=== PATIENT | male | born 1995 | race Caucasian/White ===

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

== ENCOUNTER 2017-05-06 22:17 | Emergency (ER) | payer OTHER ==
[2017-05-06 22:27] VITALS: BP 123/71; PULSE 92; RESP 20; TEMP 97
[2017-05-06] MEDS ORDERED: KETOROLAC 30 MG/ML 1 ML VIAL IM STA (22:29)
--- NOTE | 2017-05-06 22:31 | ED ---
ENT HPI - General Chief complaint: Dental/Oral Stated complaint: Dental Pain Time Seen by Provider: 05/06/17 22:19 Source: patient Mode of arrival: ambulatory Limitations: no limitations - History of Present Illness Initial comments: 22-year-old male patient presents to the emergency department today for evaluation of right upper dental pain. Patient states that approximately 3 weeks ago he had 3 teeth filled to the area. He states he has had some tenderness to the teeth since getting them filled however over the last 12 hours he has had increase in the pain. He states that the pain is not radiating up into his cheek bone. He states that her hurts to eat or drink. He denies any difficulty opening or closing his mouth. He denies any difficulty swallowing. He denies any fever, chills, or swelling. Patient denies any recent rash, shortness breath, chest pain, abdominal pain, nausea, vomiting, diarrhea, constipation, back pain, numbness, tingling, dizziness, weakness, hematuria, dysuria, urinary urgency, urinary frequency, headache, visual changes, or any other complaints. - Related Data Home Medications Medication Instructions Recorded Confirmed Ibuprofen [Motrin] 600 mg PO Q8HR PRN 05/06/17 05/06/17 Previous Rx's Medication Instructions Recorded Acetaminophen-Codeine 300-30mg 1 tab PO Q6H PRN #12 tablet 05/06/17 [Tylenol #3] Amoxicillin 500 mg PO Q8H #30 capsule 05/06/17 Allergies Allergy/AdvReac Type Severity Reaction Status Date / Time latex Allergy Rash/Hives Verified 03/03/16 11:26 Review of Systems ROS Statement: Those systems with pertinent positive or pertinent negative responses have been documented in the HPI. ROS Other: All systems not noted in ROS Statement are negative. Past Medical History Past Medical History: Asthma Additional Past Medical History / Comment(s): ADHD History of Any Multi-Drug Resistant Organisms: None Reported Past Surgical History: No Surgical Hx Reported Additional Past Surgical History / Comment(s): metal plates in hands, back surgery Past Psychological History: ADD/ADHD, Anxiety, Depression Smoking Status: Current every day smoker Past Alcohol Use History: None Reported Past Drug Use History: None Reported General Exam Limitations: no limitations General appearance: alert, in no apparent distress, other (this is a well- developed, well-nourished adult male patient in no acute distress. Vital signs upon presentation are temperature 97.0F, pulse 92, respirations 20, blood pressure 123/71, pulse ox 100% on room air.) Eye exam: Present: normal appearance, PERRL, EOMI. Absent: scleral icterus, conjunctival injection, periorbital swelling ENT exam: Present: normal exam, mucous membranes moist, TM's normal bilaterally , other (right upper dentition reveals intact filling's. No gingival erythema or swelling. No evidence of drainable abscess.). Absent: normal oropharynx ( oropharyngeal erythema, tonsillar swelling, right tonsillar exudate.) Neck exam: Present: normal inspection. Absent: tenderness, meningismus, lymphadenopathy Respiratory exam: Present: normal lung sounds bilaterally. Absent: respiratory distress, wheezes, rales, rhonchi, stridor Cardiovascular Exam: Present: regular rate, normal rhythm, normal heart sounds. Absent: systolic murmur, diastolic murmur, rubs, gallop, clicks Neurological exam: Present: alert, oriented X3, CN II-XII intact Psychiatric exam: Present: normal affect, normal mood Skin exam: Present: warm, dry, intact, normal color. Absent: rash Course Vital Signs 05/06/17 22:19 Temperature 97.0 F L Pulse Rate 92 Respiratory 20 Rate Blood Pressure 123/71 O2 Sat by Pulse 100 Oximetry Medical Decision Making - Medical Decision Making 22-year-old male patient percents for evaluation of right upper dental pain. Physical examination was unremarkable. Patient had no evidence of gingival erythema or swelling. No evidence of drainable abscess. Patient is also complaining of sore throat, states that he was diagnosed with strep approximately 3 weeks ago however was treated with a 2 day course of antibiotics , six pills of amoxicillin. Patient states that over the last couple days of sore throat has been returning. States that he does notice some white drainage from the right tonsil. We will discharge patient at this time with a prescription for amoxicillin which will cover both strep and a dental infection should he have one. Patient is given a prescription for pain medications. he is instructed to follow-up with a dentist as soon as possible. He is instructed to return here immediately for any new, worsening, or concerning symptoms. He verbalizes understanding and agree with this plan. Disposition Clinical Impression: Pain, dental Disposition: HOME SELF-CARE Condition: Good Instructions: Toothache (ED) Additional Instructions: Take medications as directed. Complete antibiotic prescription in full. Follow -up with the dentist as soon as possible. Return here immediately for any new, worsening, or concerning symptoms. Prescriptions: Acetaminophen-Codeine 300-30mg [Tylenol #3] 1 tab PO Q6H PRN #12 tablet PRN Reason: Pain Amoxicillin 500 mg PO Q8H #30 capsule Referrals: None,Stated [Primary Care Provider] - 1-2 days Time of Disposition: 22:31
== END 2017-05-06 22:39 | disposition home or self-care (01) ==
LOC: EC 22:17
DX: K08.89 Other specified disorders of teeth and supporting structures (principal); J02.0 Streptococcal pharyngitis; F17.200 Nicotine dependence, unspecified, uncomplicated; Z91.040 Latex allergy status
CPT/HCPCS: 99283; 96372; J1885

== ENCOUNTER 2017-05-12 16:38 | Emergency (ER) | payer OTHER ==
[2017-05-12 16:42] VITALS: TEMP 97.8
[2017-05-12] MEDS ORDERED: ORPHENADRINE 30 MG/ML 2 ML VIAL IM STA (17:23)
[2017-05-12] MEDS ORDERED: methylPREDNISolone SOD SUCCI 125 MG/2 ML VIAL IM ONE (17:23)
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
--- NOTE | 2017-05-12 17:38 | XR ---
EXAMINATION TYPE: XR chest 2V, XR thoracic spine 3 views DATE OF EXAM: 05/12/2017 COMPARISON: 02/22/2016 HISTORY: 22-year-old male with back pain, coughed up blood last night FINDINGS: CHEST: The cardiomediastinal silhouette, aorta, and pulmonary vasculature are within normal limits. Lungs an d pleural spaces are clear. Thoracic spine: 12 rib-bearing thoracic vertebral bodies. All pedicles are visualized. Vertebral body heights are pre served and alignment is maintained. No significant spondylotic change seen. IMPRESSION: 1. Chest: No acute cardiopulmonary process. 2. Thoracic spine: No vertebral compression collapse, malalignment, or significant spondylotic change seen.
[2017-05-12 18:32] VITALS: BP 129/78; PULSE 68; RESP 16
== END 2017-05-12 18:31 | disposition home or self-care (01) ==
LOC: EC 16:38
DX: M54.6 Pain in thoracic spine (principal); R04.2 Hemoptysis; F17.200 Nicotine dependence, unspecified, uncomplicated; Z98.890 Other specified postprocedural states; Z88.6 Allergy status to analgesic agent; Z91.040 Latex allergy status
CPT/HCPCS: 72070; 71020; 99284; 96372 ×2; J2360; J2930

== ENCOUNTER 2018-03-26 23:45 | Emergency (ER) | payer OTHER ==
--- NOTE | 2018-03-27 00:52 | XR ---
EXAMINATION TYPE: XR chest 2V DATE OF EXAM: 03/27/2018 COMPARISON: 05/12/2017 HISTORY: Congestion TECHNIQUE: Frontal and lateral views of the chest are obtained. FINDINGS: Heart and mediastinum are normal. Lungs are clear. Diaphragm is normal. Bony thorax is int act. IMPRESSION: Normal chest. No change.
--- NOTE | 2018-03-27 00:53 | XR ---
EXAMINATION TYPE: XR KUB DATE OF EXAM: 03/27/2018 COMPARISON: 07/30/2016 HISTORY: Congestion TECHNIQUE: 2 views upright FINDINGS: There is no sign of intestinal obstruction or pneumoperitoneum. Fecal pattern is normal. Th ere are no pathologic calcifications over the kidneys. Lung bases are clear. IMPRESSION: Nonacute abdomen. No change.
--- NOTE | 2018-03-27 01:50 | ED ---
General Adult HPI - General Source: patient Mode of arrival: ambulatory Limitations: no limitations <Adrienne Yanes - Last Filed: 03/27/18 03:52> <Francesca Stout - Last Filed: 03/27/18 06:16> - General Chief complaint: Nausea/Vomiting/Diarrhea Stated complaint: Coughing up blood Time Seen by Provider: 03/27/18 00:33 - History of Present Illness Initial comments: 23-year-old male patient presents to the emergency department today for evaluation of cough and hemoptysis. Patient states that he developed upper respiratory symptoms including nasal congestion, cough, and sore throat approximately one month ago. States that the other symptoms have resolved but the cough has lingered. Patient states that today he started having bright red blood present in his sputum. The patient states it was mixed in with the mucous. Patient states that he does have some sharp chest pain during a coughing episodes but none at rest or deep breaths. States that he does occasionally become short of breath and winded when doing physical activity. States he has had several episodes of posttussive vomiting. States he does smoke marijuana and cigarettes. He denies any fevers or chills. Denies any dizziness or weakness. Denies any evidence of bleeding anywhere else including hematemesis, hematochezia, or melena. Patient denies any recent rash, abdominal pain, nausea, vomiting, diarrhea, constipation, back pain, numbness, tingling, hematuria, dysuria, urinary urgency, urinary frequency, headache, visual changes , or any other complaints. (Adrienne Yanes) - Related Data Previous Rx's Medication Instructions Recorded Acetaminophen-Codeine 300-30mg 1 tab PO Q6H PRN #12 tablet 05/06/17 [Tylenol #3] Amoxicillin 500 mg PO Q8H #30 capsule 05/06/17 Cyclobenzaprine [Flexeril] 10 mg PO TID #15 tab 05/12/17 methylPREDNISolone Dose Pack 4 mg PO DIRECTED #21 package 05/12/17 [Medrol Dose Pack] Albuterol Sulfate [Proair Hfa] 1 - 2 puff INHALATION Q6HR PRN #1 03/27/18 inhaler Azithromycin [Zithromax Z-pack] 0 mg PO DIRECTED #6 tab 03/27/18 Promethazine 6.25MG/5Ml [Phenergan 6.25 mg PO Q6H #100 ml 03/27/18 Syrup] methylPREDNISolone [Medrol Dose 4 mg PO DIRECTED #1 pack 03/27/18 Pack] Allergies Allergy/AdvReac Type Severity Reaction Status Date / Time ketorolac [From Toradol] Allergy Unknown Verified 03/26/18 23:56 latex Allergy Rash/Hives Verified 03/26/18 23:56 Review of Systems ROS Other: All systems not noted in ROS Statement are negative. <Adrienne Yanes - Last Filed: 03/27/18 03:52> ROS Other: All systems not noted in ROS Statement are negative. <Francesca Stout - Last Filed: 03/27/18 06:16> ROS Statement: Those systems with pertinent positive or pertinent negative responses have been documented in the HPI. Past Medical History Past Medical History: Asthma Additional Past Medical History / Comment(s): ADHD, History of Any Multi-Drug Resistant Organisms: None Reported Past Surgical History: Back Surgery Additional Past Surgical History / Comment(s): metal plates in hands, Past Psychological History: ADD/ADHD, Anxiety, Depression Smoking Status: Current every day smoker Past Alcohol Use History: Occasional Past Drug Use History: Marijuana <Adrienne Yanes M - Last Filed: 03/27/18 03:52> General Exam Limitations: no limitations General appearance: alert, in no apparent distress, other (Physical well- developed, well-nourished adult male patient in no acute distress. Vital signs upon presentation are temperature 98.4F, pulse 100, respirations 17, blood pressure 108/75, pulse ox 97% on room air.) Eye exam: Present: normal appearance, PERRL, EOMI. Absent: scleral icterus, conjunctival injection, periorbital swelling ENT exam: Present: normal exam, normal oropharynx, mucous membranes moist Neck exam: Present: normal inspection. Absent: tenderness, meningismus, lymphadenopathy Respiratory exam: Present: normal lung sounds bilaterally. Absent: respiratory distress, wheezes, rales, rhonchi, stridor Cardiovascular Exam: Present: regular rate, normal rhythm, normal heart sounds. Absent: systolic murmur, diastolic murmur, rubs, gallop, clicks GI/Abdominal exam: Present: soft, normal bowel sounds. Absent: distended, tenderness, guarding, rebound, rigid Neurological exam: Present: alert, oriented X3, CN II-XII intact Psychiatric exam: Present: normal affect, normal mood Skin exam: Present: warm, dry, intact, normal color. Absent: rash <Adrienne Yanes - Last Filed: 03/27/18 03:52> Vital Signs 03/26/18 03/27/18 23:51 02:15 Temperature 98.4 F 98.3 F Pulse Rate 100 54 L Respiratory 17 18 Rate Blood Pressure 108/75 110/67 O2 Sat by Pulse 97 98 Oximetry Medical Decision Making - Radiology Data Radiology results: report reviewed, image reviewed <Adrienne Yanes - Last Filed: 03/27/18 03:52> <Francesca Stout - Last Filed: 03/27/18 06:16> - Medical Decision Making 23-year-old male patient presented to the emergency department today for evaluation of cough and hemoptysis. Physical examination is unremarkable. Lungs are clear to auscultation with good air movement. Chest x-ray was obtained and showed no acute cardiopulmonary process. Patient's vital signs are stable, he is afebrile. Patient symptoms are consistent with acute bronchitis. We will treat with azithromycin, Medrol Dosepak, and cough medication. He'll be given Pro Air inhaler for shortness of breath. He is instructed to follow-up with his primary care physician for recheck in 1-2 days. Return parameters were discussed in detail. He verbalizes understanding and agrees with this plan. (Adrienne Yanes) I was available for consultation in the emergency department. The history and physical exam were done by the midlevel provider. I was consulted for this patient's care. I reviewed the case with the midlevel provider and based on their presentation of the patient, I agree with the assessment, medical decision making and plan of care as documented. (Francesca Stout) - Radiology Data KUB x-ray of the abdomen was obtained. Report was reviewed in its entirety. Impression by Dr. Ring shows nonacute abdomen. With no change. Two-view x-ray of the chest is obtained. Heart min [place] normal. Lungs are clear. Diaphragm is normal. Bony thorax is intact. Impression by Dr. Ring shows normal chest with no change. (Adrienne Yanes) Disposition Is patient prescribed a controlled substance at d/c from ED?: No Time of Disposition: 01:49 <Adrienne Yanes - Last Filed: 03/27/18 03:52> <Francesca Stout - Last Filed: 03/27/18 06:16> Clinical Impression: Acute bronchitis, Hemoptysis Disposition: HOME SELF-CARE Condition: Good Instructions: Acute Bronchitis (ED) Additional Instructions: Take medications as directed. Increase fluids. Follow-up with your primary care physician for recheck as soon as possible. Return here immediately for any new, worsening, or concerning symptoms. Prescriptions: Albuterol Sulfate [Proair Hfa] 1 - 2 puff INHALATION Q6HR PRN #1 inhaler PRN Reason: Shortness Of Breath Azithromycin [Zithromax Z-pack] 0 mg PO DIRECTED #6 tab methylPREDNISolone [Medrol Dose Pack] 4 mg PO DIRECTED #1 pack Promethazine 6.25MG/5Ml [Phenergan Syrup] 6.25 mg PO Q6H #100 ml Referrals: Katiana Dorsey MD [REFERRING] - 1-2 days
[2018-03-27 02:16] VITALS: BP 110/67; PULSE 54; RESP 18; TEMP 98.3
== END 2018-03-27 02:15 | disposition home or self-care (01) ==
LOC: EC 23:45
DX: J20.9 Acute bronchitis, unspecified (principal); R11.10 Vomiting, unspecified; F12.90 Cannabis use, unspecified, uncomplicated; F17.210 Nicotine dependence, cigarettes, uncomplicated; Z88.6 Allergy status to analgesic agent; Z91.040 Latex allergy status
CPT/HCPCS: 71046; 74018; 99283

== ENCOUNTER 2018-08-18 00:18 | Inpatient (IN) | payer MEDICAID, OTHER ==
[2018-08-18] MEDS ORDERED: LORazepam 1 MG TAB PO STA (00:55)
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
[2018-08-18 02:05] LABS: Amphetamine Screen,Urine Not Detected (NotDetected); Barbiturate Screen,Urine Not Detected (NotDetected); Benzodiazepines Screen,Urine Not Detected (NotDetected); Cocaine Screen,Urine Not Detected (NotDetected); Methadone Screen, Urine Not Detected (NotDetected); Opiate Screen,Urine Not Detected (NotDetected); Oxycodone Screen, Urine Not Detected (NotDetected); Phencyclidine Screen,Urine Not Detected (NotDetected); Tricyclic Antidepressant,Urine Not Detected (NotDetected); Urn Cannabinoid Scrn Detected (NotDetected)
[2018-08-18 03:18] LABS: Appearance,Urine Clear (Clear); Bilirubin,Urine Negative (Negative); Blood,Urine Negative (Negative); Color,Urine Colorless; Glucose,Urine (UA) Negative (Negative); Ketones,Urine Negative (Negative); Leukocyte Esterase,Urine Negative (Negative); Nitrite,Urine Negative (Negative); Protein,Urine Negative (Negative); Specific Gravity,Urine 1.002 (1.001-1.035); Urobilinogen,Urine <2.0 mg/dL (<2.0)
[2018-08-18] MEDS ORDERED: ZIPRASIDONE 20 MG VIAL IM PRN (03:29)
[2018-08-18] MEDS ORDERED: MAGNESIUM HYDROXIDE 2,400 MG/10 ML CUP PO PRN (03:29)
[2018-08-18] MEDS ORDERED: ACETAMINOPHEN TAB 325 MG TAB PO PRN (03:29)
[2018-08-18] MEDS ORDERED: LORazepam 1 MG TAB PO PRN (03:29)
[2018-08-18] MEDS ORDERED: MAG HYDROX/AL HYDROX/SIMETH 30 ML CUP PO PRN (03:29)
[2018-08-18 05:15] VITALS: BMI 21.9
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
[2018-08-18 08:59] LABS: Basophils # (A) 0.1 k/uL (0-0.2); Basophils % (A) 1 %; Eosinophils # (A) 0.2 k/uL (0-0.7); Eosinophils % (A) 2 %; HCT 47.2 % (39.0-53.0); HGB 15.4 gm/dL (13.0-17.5); Lymphocytes # (A) 2.2 k/uL (1.0-4.8); Lymphocytes % (A) 19 %; MCH 31.1 pg (25.0-35.0); MCHC 32.6 g/dL (31.0-37.0); MCV 95.1 fL (80.0-100.0); Mean Platelet Volume 6.9; Monocytes # (A) 0.5 k/uL (0-1.0); Monocytes % (A) 5 %; Neutrophils # (A) 8.3 k/uL (1.3-7.7); Neutrophils % (A) 71 %; Platelet Count 256 k/uL (150-450); RBC 4.96 m/uL (4.30-5.90); RDW 12.5 % (11.5-15.5); WBC 11.7 k/uL (3.8-10.6)
[2018-08-18 09:09] LABS: ALT 29 U/L (21-72); AST 23 U/L (17-59); Albumin 4.6 g/dL (3.5-5.0); Alkaline Phosphatase 55 U/L (38-126); Anion Gap 7 mmol/L; Blood Urea Nitrogen 13 mg/dL (9-20); Calcium 10.1 mg/dL (8.4-10.2); Carbon Dioxide 28 mmol/L (22-30); Chloride 108 mmol/L (98-107); Cholesterol 134 mg/dL (<200); Glucose 92 mg/dL (74-99); HDL Cholesterol 62 mg/dL (40-60); LDL Cholesterol,Calculated 60 mg/dL (0-99); Potassium 4.7 mmol/L (3.5-5.1); Sodium 143 mmol/L (137-145); Total Bilirubin 1.3 mg/dL (0.2-1.3); Total Protein 7.4 g/dL (6.3-8.2); Triglycerides 60 mg/dL (<150)
[2018-08-18] MEDS: NICOTINE 14MG/24HR PATCH TRANSDERM SCH (10:39)
[2018-08-18] MEDS: ESCITALOPRAM 10 MG TAB PO SCH (11:41)
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
[2018-08-19] MEDS: NICOTINE 14MG/24HR PATCH TRANSDERM SCH (08:11)
[2018-08-19] MEDS: ESCITALOPRAM 10 MG TAB PO SCH (08:11)
--- NOTE | 2018-08-19 10:06 | P.PN ---
Progress Note - Text Interval history: The patient is found in group he follows me to an interview room. He indicates that his mood is better today versus yesterday. He did have a visit last night that was supportive. He reports having some difficulty sleeping last night staff reportedly slept 6 hours. He describes his appetite is been impaired and has been picking at his meals. He reports that he has been attending groups starting today. He states that the Lexapro, significant nausea yesterday and today we discussed lowering the dose to transition him more slowly on the medication. Mental status exam: The patient is alert he is a male appearing his stated age he is a mildly disheveled appearance hygiene is adequate he is dressed in his own clothing. He seated calmly in the chair. He maintains a constricted affect. He reports feeling safe in the hospital he is reporting no thoughts of harming others. He is reporting no auditory or visual hallucinations or any specific delusions. He demonstrates no evidence of psychosis hypomania or saul. He demonstrates no verbal or physical aggressiveness. He has a little spontaneous speech but mainly response to questions asked. Plan: The patient will continue on the Lexapro we will reduce the dose to 5 mg daily to slow his transition onto the medication due to the report of nausea. He is offered Zofran for nausea but declines. We will monitor him for safety monitor his intake. He is asked to provide social work with names of individuals who may be involved in his treatment and discharge planning. Vital signs reviewed.
[2018-08-19 10:55] LABS: Hemoglobin A1C 5.7 % (4.0-6.0)
[2018-08-20] MEDS: NICOTINE 14MG/24HR PATCH TRANSDERM SCH (08:00)
[2018-08-20] MEDS: ESCITALOPRAM 5 MG TAB PO SCH (08:00)
--- NOTE | 2018-08-20 11:55 | P.PN ---
Progress Note - Text The patient is found in the hallway he follows me to an interview room. He indicates his mood is improved. He was happy to report that he had been able to speak to his 11-year-old sister on the phone. He hasn't spoken to her in 3 years. He feels his family have been much more supportive. He states he is no longer experiencing any nausea from the Lexapro. He has been eating sleep has been stable. We discussed having social work trying to arrange a support meeting. Mental status exam: The patient is alert he is pleasant cooperative. He is dressed in his own clothing. Eye contact is appropriate speech is fluent spontaneous nonpressured. He indicates his mood is better. He reports no suicidal ideation intent or plan. He is verbalizing future oriented thinking. He is reporting no thoughts of harming others. He endorses no symptoms of psychosis there is no evidence of psychosis he does not appear hypomanic or manic. Insight and judgment improving. He demonstrates no verbal or physical aggressiveness. Affect is much more appropriately expressive. Plan: We will continue the last row 5 mg daily 1 more day then we will titrate back to 10 mg daily. Social work be asked to arrange a support meeting. He may be appropriate for discharge as soon as one to 2 days. We will continue to monitor him for safety and encourage full participation in the milieu.
[2018-08-21 06:57] VITALS: BP 114/62; PULSE 59; RESP 14; TEMP 97.9
[2018-08-21] MEDS: ESCITALOPRAM 5 MG TAB PO SCH (08:32)
[2018-08-21] MEDS: NICOTINE 14MG/24HR PATCH TRANSDERM SCH (08:33)
--- NOTE | 2018-08-21 09:07 | P.DS ---
Providers Date of admission: 08/18/18 03:16 Expected date of discharge: 08/21/18 Attending physician: Brock Flores Consults: 08/18/18 03:29 Consult Physician Routine Consulting Provider: Ania Thomson Consult Reason/Comments: H and P Do you want consulting provider notified?: Yes Primary care physician: Stated None - Discharge Diagnosis(es) (1) Major depressive disorder, recurrent severe without psychotic features Current Visit: Yes Status: Acute Priority: High (2) Anxiety disorder, unspecified Current Visit: Yes Status: Acute Priority: Medium Hospital Course: Brief summary of admission note: This patient is a 23-year-old single male who was admitted to the mental health unit through the emergency room with acute suicidal ideation with plan of cutting his arm. The patient reported symptoms of depression that had been worsening over the last 2 months. He states he'll he struggles this time year as it is the anniversary of his mother' s . He reported feeling more tearful and hopeless in describing erratic sleep energy and appetite. For full details please refer to my psychiatric evaluation dated 08/18/2018. Summary of hospital course: The patient was admitted to the mental health unit voluntarily. We reviewed his presenting symptoms and treatment options. We initiated Lexapro 10 mg daily. He experienced some nausea with that and would reduce the dose to 5 mg for several days. He has been tolerating the medication better and we plan to titrated again to 10 mg daily. The patient was seen by internal medicine for routine history and physical exam. The patient was seen by social work for a psychosocial assessment and for discharge planning purposes. He is scheduled to participate in a support meeting with family at 2:30 PM today. The patient has been attending groups he's been pleasant and cooperative. He has demonstrated no agitated behavior. He has reported a progressive improvement of symptoms while here. During the hospitalization he reconcile differences with his stepfather and he is now able to communicate with his 11-year-old sister which made him very happy. He states this helps him with his grief related to his mother as his sister looks like his mother and sometimes acts like her. He states that he plans on completing his GED and his stepfather states he may be able to get him a job at [employer] as they will be hiring soon. Mental status exam: The patient is alert he is dressed in his own clothing he demonstrates adequate hygiene grooming. Eye contact is appropriate speech is fluent spontaneous nonpressured. He indicates his mood is good affect is smiling and euthymic in appearance. He denies having any suicidal or homicidal ideation intent or plan. There is no report of any auditory or visual hallucinations or any specific delusions. There is no observed evidence of psychosis. He demonstrates a linear thought process he demonstrates no tangential thinking loose associations or flight of ideas. Her is no evidence of any hypomanic or manic symptoms. Insight and judgment grossly intact. He demonstrates no verbal or physical aggressiveness. He remains oriented to person place and date. Impressions 1. Depressive disorder recurrent severe without psychosis, anxiety and specified, rule out cannabis use disorder Plan: The patient will be discharged mental health unit he will return residing with his brother. He will participate in a support meeting this afternoon prior to discharge which will be facilitated by social work. Social work will arrange his outpatient mental health follow-up. The patient will continue on Lexapro we will titrate the dose back to 10 mg daily. He is instructed to abstain from any use of alcohol marijuana or any illicit drug. We discussed that the substances can elevate his safety risk. He does not wish to participate in inpatient chemical dependency treatment to abstain from those substances. There is no imminent safety risk is appropriate for transition to outpatient care. He is instructed to return to the hospital any acute safety concerns. Patient Condition at Discharge: Stable Plan - Discharge Summary Discharge Rx Participant: No New Discharge Prescriptions: New Escitalopram Oxalate [Lexapro] 10 mg PO DAILY #30 tab Nicotine 14Mg/24Hr Patch [Habitrol] 1 patch TRANSDERM DAILY #10 patch Discontinued Albuterol Sulfate [Proair Hfa] 1 - 2 puff INHALATION Q6HR PRN #1 inhaler PRN Reason: Shortness Of Breath Discharge Medication List Escitalopram Oxalate [Lexapro] 10 mg PO DAILY #30 tab 08/21/18 [Rx] Nicotine 14Mg/24Hr Patch [Habitrol] 1 patch TRANSDERM DAILY #10 patch 08/21/18 [ Rx] Follow up Appointment(s)/Referral(s): [facility] [[facility]STA[facility]] - 1 Week Patient Instructions/Handouts: Suicide Prevention (DC) Activity/Diet/Wound Care/Special Instructions: Activity and diet as tolerated. Avoid the use of street drugs and alcohol. Take all medications as prescribed. When you are in need of refills on your medications please contact your medical provider and/or outpatient psychiatrist to have this done. Please go to scheduled outpatient appointment for aftercare treatment. If symptoms return or become worse, call the crisis line at [phone] and/or go to the nearest emergency room for evaluation.
== END 2018-08-21 14:30 | disposition home or self-care (01) | DRG 885 ==
LOC: EC 00:18 → 3MHU 03:16
PROVIDERS: ADMIT Psychiatry & Neurology Psychiatry; ATTEND Psychiatry & Neurology Psychiatry
DX: F33.2 Major depressive disorder, recurrent severe without psychotic features (principal); R45.851 Suicidal ideations; F17.200 Nicotine dependence, unspecified, uncomplicated; F41.9 Anxiety disorder, unspecified; R11.0 Nausea; F90.9 Attention-deficit hyperactivity disorder, unspecified type; G89.21 Chronic pain due to trauma; J45.909 Unspecified asthma, uncomplicated; M54.9 Dorsalgia, unspecified; F43.29 Adjustment disorder with other symptoms; Z91.410 Personal history of adult physical and sexual abuse; Z88.8 Allergy status to other drugs, medicaments and biological substances; Z91.030 Bee allergy status; Z91.040 Latex allergy status; Z83.3 Family history of diabetes mellitus; Z81.8 Family history of other mental and behavioral disorders
CPT/HCPCS: 80053; 80061; 80306; 81003; 82075; 83036; 84443; 85025; 99285